=== PATIENT | female | born 1955 | race Caucasian/White ===

== ENCOUNTER → 2018-09-24 | Outpatient (CLI) | payer MEDICARE ==
[~2018-09-24] MED LIST: ALP5 PO; AUG500 PO; CEP500 PO; IBUP1TAB PO; LORA-630 PO; MOXOD OS; ONDA4TAB PO; PER PO; PRO25 PO
--- NOTE | 2018-09-24 09:56 | RADIOLOGY IMAGING REPORT ---
FACILITY: [facility] PATIENT NAME: Renata Matthews : 1955 MR: [id number] V: [id number] EXAM DATE: ORDERING PHYSICIAN: ETIENNE JOSHI TECHNOLOGIST: Location: [facility] [place] Patient: Renata Matthews : 1955 Visit/Account:[id number] Date of Sevice: 09/24/2018 Clinical history: Screening, postmenopausal. Ovarian failure. Comparison: None. LUMBAR SPINE: The bone mineral density (BMD) measured from L1-L4 correlates with a Z-score of 2.0 and a T-score of 1.2 which is normal as defined by the World Health Organization. The corresponding risk of fracture in the lumbar spine is not increased compared with a young adult reference population. HIP: Bone mineral density (BMD) measured in the left total hip region correlates with a Z-score of 1.9 and a T-score of 1.3 which is normal as defined by the World Health Organization. The corresponding ris k of fracture in the hip is not increased compared with a young adult reference population. Bone mineral density (BMD) measured in the left femoral neck correlates with a Z-score of 0.9 and a T -score of -0.1 which is normal as defined by the World Health Organization. The corresponding risk o f fracture in the hip is not increased compared with a young adult reference population. Bone mineral density (BMD) measured in the left Femoral Neck region measures 1.030 g/cm2. Impression: 1. Lumbar spine: Normal. 2. Left total hip: Normal. 3. Left femoral neck: Normal 4. Left femoral neck Bone Mineral Density is 1.030 g/cm2 The next DEXA scan of this patient should include the following sites: Lumbar spine and left hip. FRAX? WHO Fracture Risk Assessment Tool link: http://www.shef.ac.uk/FRAX/tool.jsp?locationValue=9 PLEASE NOTE: 1) The World Health Organization defines low BMD as follows: T-score Normal > -1 Osteopenia < -1 and > -2.5 Osteoporosis < -2.5 without fractures Established osteoporosis < -2.5 with fractures 2) In general, you may wish to consider: Diagnosis Treatment Follow-up DEXA Normal BMD Prevention 2-3 years Osteopenia Prevention/therapy 1-2 years Osteoporosis Therapy Yearly 3) Fracture risk estimated from the T-score is more accurate for vertebral fractures (often spontane ous) than for hip fractures. Report Dictated By: Radha Leon MD at 09/24/2018 9:44 AM Report E-Signed By: Radha Leon MD at 09/24/2018 9:51 AM WSN:[email or web address]
--- NOTE | 2018-09-27 16:33 | RADIOLOGY IMAGING REPORT ---
FACILITY: [facility] - [place] PATIENT NAME: JOSELYN WARNER : [id number] MR: [id number] V: [id number] EXAM DATE: [id number] ORDERING PHYSICIAN: ETIENNE JOSHI TECHNOLOGIST: Yokasta Walker PROCEDURE: BILATERAL DIGITAL SCREENING MAMMOGRAM WITH CAD ASSISTED INTERPRETATION & 3D TOMOSYNTHESIS REASON FOR STUDY: Screening. FAMILY HISTORY OF BREAST CANCER: BREAST PROCEDURES/TREATMENTS: COMPARISON: 12/23/11, 02/09/07 VIEWS OBTAINED: Bilateral 2D & 3D full field CC & MLO projections BREAST DENSITY: The breasts are almost entirely fatty. MAMMOGRAM FINDINGS: There are no mammographic findings concerning for malignancy. No significant interval change. IMPRESSION: BIRADS 1: Negative. DIAGNOSTIC CATEGORY 1--NEGATIVE. RECOMMENDATIONS: ROUTINE MAMMOGRAM IN 1 YEAR AND CLINICAL EVALUATION. Dictated by: Dimas Novoa on 09/27/2018 at 8:56 Transcribed by: KEVIN on 09/27/2018 at 14:05 Approved by: Dimas Novoa on 09/27/2018 at 16:30 [facility]
== END ==
LOC: LAB 07:44
PROVIDERS: ATTEND Nurse Practitioner Psychiatric/Mental Health
DX: Z12.31 Encounter for screening mammogram for malignant neoplasm of breast (principal); Z00.00 Encounter for general adult medical examination without abnormal findings; E89.41 Symptomatic postprocedural ovarian failure
CPT/HCPCS: 77063; 77067; 77080